=== PATIENT | female | born 1990 ===

== ENCOUNTER 2017-03-18 00:41 | Emergency (ER) | payer MEDICAID ==
[2017-03-18 01:12] VITALS: BMI 31.6
[2017-03-18] MEDS ORDERED: Sodium Chloride 0.9% 1,000 ML IV STA (01:13)
[2017-03-18 01:42] LABS: BASO % 0.3 % (0.0-2.0); EOS # 0.2 K/uL (0.0-0.7); EOS % 1.2 % (0.0-4.0); HEMATOCRIT 36.8 % (34.0-47.0); LYMPH # 0.8 K/uL (1.0-4.3); MEAN CELL VOLUME 78.9 fl (81.0-99.0); MEAN CORPUSCULAR HEMOGLOBIN 25.1 pg (27.0-31.0); MEAN CORPUSCULAR HGB CONC 31.8 g/dL (33.0-37.0); MEAN PLATELET VOLUME 8.2 fl (7.2-11.7); MONO # 0.5 K/uL (0.0-0.8); MONO % 3.9 % (0.0-10.0); NEUT % 88.6 % (50.0-75.0); NRBC % 0.1 % (0.0-0.0); PLATELET COUNT 250 K/uL (130-400); RED CELL DISTRIBUTION WIDTH 14.8 % (11.5-14.5); WHITE BLOOD COUNT 13.5 K/uL (4.8-10.8)
[2017-03-18 01:51] LABS: BLOOD UREA NITROGEN 12 mg/dl (7-17); CALCIUM 9.1 mg/dL (8.4-10.2); CARBON DIOXIDE 24 mmol/L (22-30); CHLORIDE 104 mmol/L (98-107); GFR AFRICAN-AMERICAN > 60; GLUCOSE,RANDOM 119 mg/dL (65-105); POTASSIUM 4.3 MMOL/L (3.6-5.0); SODIUM 142 mmol/l (132-148)
[2017-03-18 01:54] LABS: VENOUS BLOOD GAS BASE EXCESS 4.2 mmol/L (0.0-2.0); VENOUS BLOOD GAS PCO2 44 mmHg (40-60); VENOUS BLOOD PH 7.43 (7.32-7.43)
[2017-03-18 02:09] LABS: RBC URINE 61 /hpf (0-3); URINE BACTERIA RARE (<OCC); URINE BILIRUBIN NEGATIVE (NEGATIVE); URINE BLOOD MODERATE (NEGATIVE); URINE COLOR STRAW (YELLOW); URINE GLUCOSE (UA) NEG (Normal); URINE KETONE NEGATIVE (NEGATIVE); URINE LEUKOCYTE ESTERASE MOD Leu/uL (Negative); URINE PROTEIN 30 mg/dL (NEGATIVE); URINE UROBILINOGEN 0.2-1.0 mg/dL (0.2-1.0); WBC URINE 70 /hpf (0-5)
[2017-03-18 02:36] VITALS: BP 110/59; PULSE 102; RESP 21; TEMP 99.6
[2017-03-18 03:42] LABS: NEUTROPHIL 96 % (42-75); TOTAL CELLS COUNTED 100
[2017-03-18 03:46] LABS: STOMATOCYTES SLIGHT
[2017-03-18] MEDS ORDERED: Ciprofloxacin 400mg/200ml D5W 400 MG/200 ML BAG IVPB ONE (04:25)
[2017-03-18] MEDS: Ciprofloxacin 400mg/200ml D5W 400 MG/200 ML BAG IVPB STA ×2 (04:26→04:40)
[2017-03-18 04:34] LABS: VENOUS BLOOD GAS BASE EXCESS -0.8 mmol/L (0.0-2.0); VENOUS BLOOD GAS PCO2 41 mmHg (40-60); VENOUS BLOOD PH 7.38 (7.32-7.43)
[2017-03-18 04:42] VITALS: O2SAT 100
== END 2017-03-18 05:02 | disposition home or self-care (01) ==
LOC: H.ER 00:41
DX: M54.5 Low back pain (principal); N10 Acute pyelonephritis
CPT/HCPCS: 71020; 74176; 80048; 81003; 81025; 82803; 85025; 87040; 87086; 87181; 96360; 99284; J7040

== ENCOUNTER 2017-10-02 19:29 | Emergency (ER) | payer MEDICAID ==
[2017-10-02 19:29] VITALS: BMI 31.6
[2017-10-02 19:37] VITALS: O2SAT 99
[2017-10-02] MEDS ORDERED: Sodium Chloride 0.9% 1,000 ML IV STA (19:57)
[2017-10-02 20:31] LABS: BASO # 0.1 K/uL (0.0-0.2); BASO % 0.3 % (0.0-2.0); EOS % 0.2 % (0.0-4.0); HEMOGLOBIN 11.9 g/dL (12.0-16.0); LYMPH # 0.7 K/uL (1.0-4.3); LYMPH % 4.7 % (20.0-40.0); MEAN CELL VOLUME 78.8 fl (81.0-99.0); MEAN CORPUSCULAR HEMOGLOBIN 26.2 pg (27.0-31.0); MEAN CORPUSCULAR HGB CONC 33.2 g/dL (33.0-37.0); MEAN PLATELET VOLUME 8.4 fl (7.2-11.7); MONO # 0.9 K/uL (0.0-0.8); NEUT # 13.3 K/uL (1.8-7.0); NEUT % 88.8 % (50.0-75.0); PLATELET COUNT 272 K/uL (130-400); RBC 4.53 Mil/uL (3.80-5.20); RED CELL DISTRIBUTION WIDTH 16.1 % (11.5-14.5); WHITE BLOOD COUNT 14.9 K/uL (4.8-10.8)
[2017-10-02 20:39] LABS: VENOUS BLOOD GAS BASE EXCESS 2.7 mmol/L (0.0-2.0); VENOUS BLOOD GAS PCO2 36 mmHg (40-60); VENOUS BLOOD GAS PO2 45 mm/Hg (30-55); VENOUS BLOOD PH 7.47 (7.32-7.43)
[2017-10-02 20:43] LABS: ALB/GLOB RATIO 1.1 (1.0-2.1); ALBUMIN 4.4 g/dL (3.5-5.0); ALT/SGPT 35 U/L (9-52); AST/SGOT 25 U/L (14-36); BLOOD UREA NITROGEN 11 mg/dl (7-17); CALCIUM 9.6 mg/dL (8.4-10.2); GFR AFRICAN-AMERICAN > 60; GFR NON-AFRICAN AMERICAN > 60
--- NOTE | 2017-10-02 21:12 | ED PDOC ---
HPI: General Adult Time Seen by Provider: 10/02/17 19:50 Chief Complaint (Nursing): Flu-like Symptoms Chief Complaint (Provider): Fever History/Exam Limitations: no limitations Onset/Duration Of Symptoms: Hrs Current Symptoms Are (Timing): Still Present Additional Complaint(s): Charlene Dugan is a 26 year old female with a past medical history of sickle cell trait, who is presenting to the ER with complaints of abrupt onset fever associated with diffuse body aches and b/l lower back pain starting around 3 am this morning. Patient also reports foul smelling urine but no dysuria or urinary frequency . She denies trauma, incontinence, rash, cough, congestion, abdominal pain, sore throat, rash, nausea, vomiting, diarrhea, headaches, recent travel, or sick contacts. PMD: Teja Lao Past Medical History Reviewed: Historical Data, Nursing Documentation, Vital Signs Vital Signs: Last Vital Signs Temp 98.6 F 10/02/17 22:54 Pulse 75 10/02/17 22:54 Resp 18 10/02/17 22:54 BP 138/86 10/02/17 22:54 Pulse Ox 99 10/02/17 22:54 - Medical History Other PMH: sickle cell trait - Surgical History Surgical History: No Surg Hx - Family History Family History: States: No Known Family Hx - Home Medications Home Medications: Ambulatory Orders Medication Instructions Recorded Ciprofloxacin [Cipro] 500 mg PO BID 7 Days tab 03/18/17 Ibuprofen [Motrin Tab] 600 mg PO Q6 #30 tab 03/18/17 - Allergies Allergies/Adverse Reactions: Allergies Allergy/AdvReac Type Severity Reaction Status Date / Time No Known Allergies Allergy Verified 03/18/17 01:11 Review of Systems ROS Statement: Except As Marked, All Systems Reviewed And Found Negative Constitutional: Positive for: Fever, Other (body aches, (-) recent travel, sick contacts) ENT: Negative for: Nose Congestion, Throat Pain Respiratory: Negative for: Cough Gastrointestinal: Negative for: Nausea, Vomiting, Abdominal Pain, Diarrhea Musculoskeletal: Negative for: Back Pain Skin: Negative for: Rash Neurological: Negative for: Headache Physical Exam - Reviewed Nursing Documentation Reviewed: Yes Vital Signs Reviewed: Yes - Physical Exam Appears: Positive for: Non-toxic, No Acute Distress Head Exam: Positive for: ATRAUMATIC, NORMAL INSPECTION, NORMOCEPHALIC Skin: Positive for: Normal Color, Warm. Negative for: Rash Eye Exam: Positive for: EOMI, Normal appearance, PERRL ENT: Positive for: Normal ENT Inspection Neck: Positive for: Normal, Painless ROM, Supple Cardiovascular/Chest: Positive for: Regular Rate, Rhythm. Negative for: Murmur Respiratory: Positive for: Normal Breath Sounds. Negative for: Respiratory Distress Gastrointestinal/Abdominal: Positive for: Normal Exam, Soft. Negative for: Tenderness Back: Positive for: Normal Inspection. Negative for: L CVA Tenderness, R CVA Tenderness, Vertebral Tenderness Extremity: Positive for: Normal ROM. Negative for: Deformity, Swelling Neurologic/Psych: Positive for: Alert, Oriented. Negative for: Motor/Sensory Deficits - Laboratory Results Result Diagrams: 10/02/17 20:20 10/02/17 20:20 Urine POC: Negative - ECG O2 Sat by Pulse Oximetry: 99 (RA) Pulse Ox Interpretation: Normal Medical Decision Making Medical Decision Making: Time: 20:02 Plan: --VBG Shock Panel --CMP --ED Urine --CBC --IV Fluids --Tylenol 975 mg PO --Blood Culture --Throat Culture --Urine Culture --Influenza A B --Rapid Strep Group A Antigen --Urinalysis 2223 UA indicates UTI. Rocephin 1gm IV, CT abd/pelvis w/o contrast ordered. Vital signs improved. Pt. states she is feeling much better. Scribe Attestation: Documented by Monica Barba, acting as a scribe for Rodney Velazquez PA-C. Provider Scribe Attestation: All medical record entries made by the Scribe were at my direction and personally dictated by me. I have reviewed the chart and agree that the record accurately reflects my personal performance of the history, physical exam, medical decision making, and the department course for this patient. I have also personally directed, reviewed, and agree with the discharge instructions and disposition. Disposition - Clinical Impression Clinical Impression: Fever, UTI (urinary tract infection) - Patient ED Disposition Is Patient to be Admitted: Transfer of Care (Signed out to Elder PERES pending CT reports.) - Disposition Disposition Time: 00:00 Condition: STABLE Forms: [employer] (Lebanese)
[2017-10-02 21:46] LABS: ANISOCYTOSIS SLIGHT; BANDS 2 % (0-2); LARGE PLATELETS PRESENT; LYMPHOCYTE 6 % (20-50); MONOCYTE 4 % (0-10); NEUTROPHIL 88 % (42-75); PLATELET ESTIMATE NORMAL (NORMAL); TOTAL CELLS COUNTED 100
[2017-10-02 21:59] LABS: SQUAMOUS EPITHIAL < 1 /hpf (0-5); URINE BACTERIA MOD (<OCC); URINE BILIRUBIN NEGATIVE (NEGATIVE); URINE BLOOD MODERATE (NEGATIVE); URINE CLARITY TURBID (Clear); URINE COLOR YELLOW (YELLOW); URINE GLUCOSE (UA) NEG (Normal); URINE LEUKOCYTE ESTERASE LARGE Leu/uL (Negative); URINE PROTEIN 100 mg/dL (NEGATIVE); URINE UROBILINOGEN 0.2-1.0 mg/dL (0.2-1.0)
[2017-10-02] MEDS ORDERED: cefTRIAXone (Rocephin) 1 gm Inj ONE (22:35)
[2017-10-02 22:54] VITALS: TEMP 98.6
[2017-10-02 22:55] VITALS: BP 138/86; PULSE 75; RESP 18
--- NOTE | 2017-10-03 00:45 | CT ---
EXAM: CT Abdomen and Pelvis Without Intravenous Contrast CLINICAL HISTORY: 26 years old, female; Pain; Other: Back pain; Additional info: Back pain, uti TECHNIQUE: Axial computed tomography images of the abdomen and pelvis without intravenous contrast. All CT scans at this facility use one or more dose reduction techniques, viz.: automated exposure control; ma/kV adjustment per patient size (including targeted exams where dose is matched to indication; i.e. head); or iterative reconstruction technique. Coronal and sagittal reformatted images were created and reviewed. COMPARISON: CT - ABD PELVIS W/O PO OR IV CONT 2017-03-18 03:18 FINDINGS: Limitations: Lack of intravenous contrast. Lung bases: Minimal atelectasis. ABDOMEN: Liver: Unremarkable. Gallbladder and bile ducts: No calcified stones. No ductal dilation. Pancreas: Unremarkable. No ductal dilation. Spleen: No splenomegaly. Adrenals: No mass. Kidneys and ureters: Minimal stranding about kidneys, nonspecific. No renal calculi. No hydronephrosis. Stomach and bowel: No definite mural thickening. No obstruction. Appendix: Normal caliber. No inflammation. PELVIS: Bladder: Borderline bladder wall thickening, 4-5 mm. Incomplete distention, limiting evaluation. No stones. Reproductive: Unremarkable as visualized. ABDOMEN and PELVIS: Intraperitoneal space: Small free fluid within pelvis. No free air. Bones/joints: No acute fracture. Soft tissues: Tiny umbilical hernia containing fat. Vasculature: Unremarkable. No aneurysm. Lymph nodes: No pathologically enlarged lymph nodes. IMPRESSION: 1. Perinephric stranding, nonspecific. Mild bladder wall thickening vs underdistention. Correlate with urinalysis to exclude infection. 2. Incidental/non-acute findings are described above.
--- NOTE | 2017-10-03 01:08 | ED PDOC ---
- Laboratory Results Result Diagrams: 10/02/17 20:20 10/02/17 20:20 Interpretation Of Abn Labs: Endorsed pending CT scan. Elevation of WBC. Lactate normal. Urine POC: Negative - ECG O2 Sat by Pulse Oximetry: 99 (RA) Pulse Ox Interpretation: Normal Disposition - Clinical Impression Clinical Impression: Pyelonephritis - POA Present On Arrival: None - Disposition Referrals: Violeta Ochoa MD [Medical Doctor] - Disposition: Routine/Home Disposition Time: 01:07 Condition: GOOD Prescriptions: Ciprofloxacin [Cipro] 500 mg PO BID #14 tab Instructions: Kidney Infection Forms: [facility] (Omani)
== END 2017-10-03 01:20 | disposition home or self-care (01) ==
LOC: H.ER 19:29
DX: N12 Tubulo-interstitial nephritis, not specified as acute or chronic (principal); D57.3 Sickle-cell trait
CPT/HCPCS: 74176; 80053; 81003; 81025; 82803; 85025; 87040; 87070; 87086; 87430; 87804; 96374; 99284; J0696; J7040